=== PATIENT | female | born 1995 | race Caucasian/White ===

== ENCOUNTER 2020-06-02 05:06 | Emergency (ER) | payer OTHER, SELFPAY ==
[2020-06-02 05:12] VITALS: BP 128/76; PULSE 96; RESP 16; TEMP 37.3; O2SAT 100
--- NOTE | 2020-06-02 05:25 | ED.GENADULT ---
HPI - General Adult General Chief complaint: Eye Problems Stated complaint: eye issues Time Seen by Provider: 06/02/20 05:14 History of Present Illness HPI narrative: Patient 25-year-old female presents the emergency department with chief complaint of left eye pain. Patient reports that several days ago she slept with her contacts of her eyes started having severe pain when she removed the contact from her eye. Patient reports that she has severe pain photophobia and whenever she opens her eye there is discomfort. Patient reports that not improved by anything. Related Data Allergies Allergy/AdvReac Type Severity Reaction Status Date / Time No Known Allergies Allergy Unverified 01/09/18 16:20 Review of Systems Review of Systems: Narrative: A 10 system review of systems was completed on the patient and is negative except for what is stated in the HPI. Nursing and ancillary documentation was reviewed. Exam Narrative: Exam Narrative: GENERAL: Well-appearing, well-nourished, and in no acute distress. HEAD: Normocephalic, atraumatic. EYES: PERRLA and EOMI. there is a small punctate corneal ulcer present at approximately 8 o'clock. ENT: Nares clear, no rhinorrhea or epistaxis. Mucous membranes moist. NECK: Supple. CHEST: Clear to auscultation. No respiratory distress. HEART: Regular rate and rhythm. No murmur heard. Normal peripheral pulses. ABDOMEN: Soft, nontender, nondistended, normal active bowel sounds. EXTREMITIES: Normal range of motion. No edema. SKIN: Warm, dry, no rash. NEURO: No focal deficits. Alert and oriented x3. PSYCH: Normal mood and affect. Course Vital Signs Vital signs: Vital Signs Temperature 37.3 C 06/02/20 05:12 Pulse Rate 96 06/02/20 05:12 Respiratory Rate 16 06/02/20 05:12 Blood Pressure 128/76 06/02/20 05:12 Pulse Oximetry 100 06/02/20 05:12 Temperature 37.3 C 06/02/20 05:12 Pulse Rate 96 06/02/20 05:12 Respiratory Rate 16 06/02/20 05:12 Blood Pressure 128/76 06/02/20 05:12 Pulse Oximetry 100 06/02/20 05:12 Medical Decision Making Vital Signs Vital Signs: Vital Signs Temperature 37.3 C 06/02/20 05:12 Pulse Rate 96 06/02/20 05:12 Respiratory Rate 16 06/02/20 05:12 Blood Pressure 128/76 06/02/20 05:12 Pulse Oximetry 100 06/02/20 05:12 Temperature 37.3 C 06/02/20 05:12 Pulse Rate 96 06/02/20 05:12 Respiratory Rate 16 06/02/20 05:12 Blood Pressure 128/76 06/02/20 05:12 Pulse Oximetry 100 06/02/20 05:12 Discharge Plan Discharge Clinical Impression: Corneal ulcer Qualifiers: Laterality: left Qualified Code(s): H16.002 - Unspecified corneal ulcer, left eye Corneal abrasion Qualifiers: Encounter type: initial encounter Laterality: left Qualified Code(s): S05.02XA - Injury of conjunctiva and corneal abrasion without foreign body, left eye, initial encounter Patient Disposition: Home, Self-Care Condition: Stable Instructions: Antibiotic Form, Corneal Abrasion (ED), Corneal Ulcer (ED) Additional Instructions: Please follow-up with your chemical dependency professional in the next 24 hours Prescriptions: New gentamicin 0.3 % drops 2 drp LEFT EYE Q4H Qty: 5 RF: 0 Follow-up/Referrals: PHYSICIAN,INSTRUCTOR OF NURSING [Non-Staff] -
[2020-06-02] MEDS: GENTAMICIN SULFATE 0.3% OP SOL 5 ML BTL 2 DROP LEFT EYE (05:51)
== END 2020-06-02 06:18 | disposition home or self-care (01) ==
PROVIDERS: Emergency Provider Emergency Medicine; PCP Nurse Practitioner Family
DX: S05.02XA Injury of conjunctiva and corneal abrasion without foreign body, left eye, initial encounter (principal); H16.002 Unspecified corneal ulcer, left eye; X58.XXXA Exposure to other specified factors, initial encounter
CPT/HCPCS: 99283; A9270